=== PATIENT | female | born 1955 | race Caucasian/White ===

== ENCOUNTER 2020-07-25 19:37 | Inpatient (IN) | payer MEDICARE, OTHER ==
[~2020-07-25] VITALS: Ht 157.5 cm; Wt 72.6 kg
--- NOTE | 2020-07-25 19:48 | NUR ---
PT [id number] FROM [facility] FOR AN EPISODE OF APHASIA LASTING 15MINS @ APPROXIMATELY 1900. 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 PT APPEARS TO BE BACK TO HER BASELINE. NO NEUROLIGAL DEFICITS AT THIS TIME. NO DRIFTS ON ALL EXTRIMITIES. -FACIAL ASSYMETRY. PT AAOX4, VSS, RESPIRATIONS EVEN AND UNLABORED ON RA W/ NAD NOTED. PT CONNECTED TO THE MONITOR AND POX.
--- NOTE | 2020-07-25 19:53 | NUR ---
BLOOD COLLECTED AND SENT TO LAB
--- NOTE | 2020-07-25 19:53 | NUR ---
EKG AT BEDSIDE
--- NOTE | 2020-07-25 19:53 | NUR ---
XRAY AT BEDSIDE
[2020-07-25 20:17] LABS: BASOPHILS % (AUTO) 0.4 % (0.0-2.0); EOSINOPHILS % (AUTO) 3.5 % (0.0-6.0); HEMATOCRIT 41 % (33-45); HEMOGLOBIN 12.9 g/dL (11.5-14.8); LYMPHOCYTES # (AUTO) 1.9 /CMM (0.8-4.8); LYMPHOCYTES % (AUTO) 26.8 % (20.0-44.0); MEAN CORPUSCULAR HGB CONC 31 g/dl (31.0-36.0); MEAN CORPUSCULAR VOLUME 83 fL (82-100); MONOCYTES # (AUTO) 0.7 /CMM (0.1-1.30); MONOCYTES % (AUTO) 9.9 % (2.0-12.0); NEUTROPHILS # (AUTO) 4.3 /CMM (1.8-8.9); NEUTROPHILS % (AUTO) 59.4 % (43.0-81.0); PLATELET COUNT (AUTO) 254 /CMM (150-450); RED BLOOD CELL COUNT(AUTO) 4.99 MIL/uL (4.0-5.2); WHITE BLOOD COUNT (AUTO) 7.2 K/uL (4.3-11.0)
[2020-07-25 20:25] LABS: CARBON DIOXIDE 27 mmol/L (21-32); CHLORIDE 108 mmol/L (98-107); GLUCOSE 184 mg/dL (74-106); POTASSIUM 4.1 mmol/L (3.5-5.1); SODIUM SERUM 143 mmol/L (136-145); UREA NITROGEN, BLOOD 26 mg/dL (7-18)
[2020-07-25 20:26] LABS: CALCIUM, SERUM 9.6 mg/dL (8.5-10.1)
[2020-07-25] MEDS ORDERED: IV NS 0.9% 250 ML IV ONE (20:29)
[2020-07-25] MEDS ORDERED: IOHEXOL-350 100 ML VIAL IV ONE (20:29)
--- NOTE | 2020-07-25 20:45 | NUR ---
PT TAKEN TO CT
[2020-07-25] MEDS ORDERED: IV NS 0.9% 1,000 ML IV ONE (21:00)
--- NOTE | 2020-07-25 21:13 | NUR ---
PT BACK FROM RADIOLOGY
--- NOTE | 2020-07-25 21:42 | NUR ---
COVID SWAB SENT TO LAB
[2020-07-25] MEDS ORDERED: LABE100T5 PO (21:43)
[2020-07-25] MEDS ORDERED: HYDR-4354 PO (21:44)
[2020-07-25] MEDS ORDERED: GABA-536 PO (21:45)
--- NOTE | 2020-07-25 21:53 | NUR ---
NURSE NOT AVAILABLE FOR REPORT
[2020-07-25] MEDS ORDERED: ASPIRIN 81 MG TAB.CHEW PO ONE (22:00)
--- NOTE | 2020-07-25 22:11 | NUR ---
CALLED [facility], PAGED JUVENAL PADGETT
--- NOTE | 2020-07-25 22:16 | NUR ---
Rec'd report from SANDY Renteria for ABDIEL
[2020-07-25 22:17] LABS: CHOLESTEROL 148 mg/dL (<200); HDL CHOLESTEROL 46 mg/dL (40-60); LDL 73 mg/dL (0-99); TRIGLYCERIDES 144 mg/dL (30-150)
--- NOTE | 2020-07-25 22:19 | NUR ---
REPORT GIVEN TO SANDY CLEMENT FOR ABDIEL
--- NOTE | 2020-07-25 23:05 | NUR ---
RIPRAP MAN NOTE: Pt transferred to unit via gurney accompanied by RN and EMT. Transferred to bed and hooked up to monitors. Admit dx: TIA, aphasia. A&Ox4. On room air, O2 WNL at 96%. NSR on tele monitor. Pt stated she is able to ambulate w/ cane but refuses to ambulate at this time. IV site on LAC #20 patent and flushed. Dressing c/d/i. Physical assessment and skin check done. Dr. Rae aware of pt's arrival to unit. Currently NPO. Oriented to room and call light. Safety measures in place. Will continue to monitor.
--- NOTE | 2020-07-25 23:08 | NUR ---
PT TRANSFERRED TO 259 IN STABLE CONDITION
[2020-07-25 23:30] VITALS: BP 165/81
[2020-07-25] MEDS ORDERED: ACETAMINOPHEN 325 MG TABLET PO PRN (23:30)
[2020-07-25] MEDS ORDERED: MAG HYDROX/AL HYDROX/SIMETH 30 ML UDC PO PRN (23:30)
[2020-07-26] VITALS (7 sets, daily range): BP systolic 118–169; BP diastolic 64–79
[2020-07-26] MEDS: BLOOD SUGAR DIAGNOSTIC 1 EACH STRIP IN SCH ×6 (00:03→22:37)
--- NOTE | 2020-07-26 00:24 | NUR ---
RN NOTE: Bedside swallow eval done, pt passed. 0013: Updated Dr. Rae who changed NPO status to consistent carb/cardiac diet. Order noted and carried out.
[2020-07-26] MEDS: HYDROCODONE/APAP 10/325MG TABLET PO PRN ×3 (00:37→22:49)
--- NOTE | 2020-07-26 01:30 | NUR ---
RN NOTE: Per pt, she takes Gabapentin 900mg at bedtime and needs her dose to be able to sleep tonight. Paged Dr. Rae, who stated that 900 mg is a high dose for nighttime and does not feel comfortable prescribing. Explained to pt who stated understanding.
--- NOTE | 2020-07-26 01:44 | NUR ---
RN NOTE: Spoke w/ radiology who stated that they can not complete the stat Echo d/t pt pending Covid results. Updated Dr. Rae who said that is fine.
[2020-07-26 04:49] LABS: BASOPHILS % (AUTO) 0.4 % (0.0-2.0); EOSINOPHILS % (AUTO) 2.9 % (0.0-6.0); HEMATOCRIT 39 % (33-45); HEMOGLOBIN 12.3 g/dL (11.5-14.8); LYMPHOCYTES # (AUTO) 2.4 /CMM (0.8-4.8); LYMPHOCYTES % (AUTO) 31.3 % (20.0-44.0); MEAN CORPUSCULAR HGB CONC 32 g/dl (31.0-36.0); MEAN CORPUSCULAR VOLUME 81 fL (82-100); MONOCYTES # (AUTO) 0.8 /CMM (0.1-1.30); MONOCYTES % (AUTO) 10.3 % (2.0-12.0); NEUTROPHILS # (AUTO) 4.3 /CMM (1.8-8.9); NEUTROPHILS % (AUTO) 55.1 % (43.0-81.0); PLATELET COUNT (AUTO) 231 /CMM (150-450); RED BLOOD CELL COUNT(AUTO) 4.77 MIL/uL (4.0-5.2); WHITE BLOOD COUNT (AUTO) 7.8 K/uL (4.3-11.0)
[2020-07-26 05:00] LABS: ALBUMIN 2.8 g/dL (3.4-5.0); BILIRUBIN,TOTAL 0.3 mg/dL (0.2-1.0); CALCIUM, SERUM 8.9 mg/dL (8.5-10.1); CREATININE 1.6 mg/dL (0.6-1.3); PHOSPHORUS 2.6 mg/dL (2.5-4.9); POTASSIUM 4.1 mmol/L (3.5-5.1); TOTAL PROTEIN, SERUM 6.8 g/dL (6.4-8.2)
[2020-07-26 05:34] LABS: THYROID STIMULATING HORMONE 0.618 uIU/mL (0.358-3.74)
--- NOTE | 2020-07-26 06:55 | NUR ---
RN CLOSING NOTES: Pt remains stable throughout shift. No acute changes noted throughout shift. Remains on isolation for positive Covid. Remains on 4LPM NC tolerating well. No SOB or resp distress noted throughout shift. RFA #20 patent and flushed. Dressing c/d/i. All meds given as ordered. Kept clean/dry. Safety measures in place. Will endorse to am nurse for ABDIEL. Addendum: 07/26/20 at 0655 by URBANO HANNA RN WRONG PATIENT!
--- NOTE | 2020-07-26 06:56 | NUR ---
RN CLOSING NOTES: Pt remains stable throughout shift. No acute changes noted throughout shift. Remains on isolation precautions for R/O Covid. Remains on room air, O2 sat WNL. No SOB or resp distress noted throughout shift. NSR on tele monitor. LAC #20 patent and flushed. Dressing c/d/i. All meds given as ordered. Kept clean/dry. Safety measures in place. Will endorse to am nurse for ABDIEL.
--- NOTE | 2020-07-26 07:30 | NUR ---
RN NOTES RECEIVED PATIENT AWAKE, ALERT AND ORIENTED X4, ABLE TO MAKE NEEDS KNOWN.ABLE TO FOLLOW COMMANDS NOT ON ANY FORM OF DISTRESS. ON ROOM AIR, BREATHING UNLABORED.SATING FINE. NO COMPLAINTS OF PAIN OF ANY KIND. UPPER EXTREMITIES STRENGTH 5/5, NO DRIFT. LOWER EXTREMITIES STRENGTH 5/5. PATIENT ENCOURAGE TO CALL FOR HELP/ASSISTANCE. VERBALIZE FEELINGS AND CONCERNS.SAFETY MEASURERS OBSERVED AND MAINTAINED. CALL LIGHT PLACED WITHIN REACH. WILL CONTINUE TO MONITOR PATIENT AND IMPLEMENT ISOLATION PENDING PCR RESULTS
[2020-07-26] MEDS ORDERED: ASPIRIN EC 325 MG TABLET.DR PO SCH (09:00)
[2020-07-26] MEDS: GABAPENTIN 400 MG CAPSULE PO SCH ×3 (09:04→17:04)
[2020-07-26] MEDS: DOCUSATE SODIUM 100 MG CAPSULE PO SCH (09:04)
[2020-07-26] MEDS: LABETALOL HCL (100MG) 100 MG TABLET PO SCH ×2 (09:04→17:04)
[2020-07-26] MEDS: PANTOPRAZOLE 40 MG VIAL IV SCH (09:04)
[2020-07-26] MEDS: ENOXAPARIN SODIUM 30 MG/0.3 ML DISP.SYRIN SQ SCH (09:05)
--- NOTE | 2020-07-26 12:00 | NUR ---
rn notes insulin per slidinng scale not given as patient refused to eat lunch
--- NOTE | 2020-07-26 16:21 | NUR ---
3:00pm Social Service consult requested by Dayna Rae MAINS AND SERVICE SUPERVISOR per stroke protocol. Per RN patient has not been able to sleep and is currently asleep now.
[2020-07-26] MEDS: CLOPIDOGREL BISULFATE 75 MG TABLET PO SCH (17:04)
--- NOTE | 2020-07-26 19:21 | NUR ---
RN NOTES ENDORSED PATIENT FOR ABDIEL. NO ACUTE CHANGES WITHIN THE SHIFT.
--- NOTE | 2020-07-26 20:45 | NUR ---
RN NOTES ENDORSEMENT REPORT GIVEN TO MISHA IN [facility] FOR PT TRANSFER FROM ICU TO [facility] ROOM 105. FOR ABDIEL. JUAN MIGUEL DELGADO MADE AWARE. Addendum: 07/26/20 at 2137 by DORCAS ROSEN RN [id number] FACILITATED PATIENT TRANSFER TO [facility]; TRANSFERRED PT ON STABLE CONDITION WITH ALL VITALS WNL TO RECEIVING SAIMA. JUAN MIGUEL DELGADO OF [facility] MADE AWARE.
--- NOTE | 2020-07-26 21:30 | NUR ---
SOLID DIE CUTTER NOTE RECEIVED PT A/O X4. BREATHING EVEN AND UNLABORED IN RA. NO SOB OR ACUTE DISTRESS NOTED. DENIES ANY PAIN PAIN OR DISCOMFORT. SINUS RHYTHM ON MONITOR. LAC #20G IV LINE PATENT AND INTACT. ALL NEEDS RENDERED. CALL LIGHT WITHIN REACH. KEPT CLEAN AND DRY. WILL CONTINUE TO MONITOR
[2020-07-26] MEDS ORDERED: SIMVASTATIN 10 MG TABLET PO SCH (22:00)
--- NOTE | 2020-07-26 22:52 | NUR ---
TELE-1/GROUNDS FOREMAN PER JUVENAL PADGETT HEALTH SERVICES COORDINATOR CONTINUE ACCU CHECKS TO MONITOR BLOOD SUGAR. BUT DISCONTINUE THE COMMENT TO NOTIFY MD IS BLOOD SUGAR GREATER THAN 150. WILL CONTINUE TO MONITOR.
[2020-07-27] VITALS: BP 126/67
[2020-07-27 04:00] VITALS: BP 140/54
[2020-07-27 06:34] LABS: BASOPHILS % (AUTO) 0.3 % (0.0-2.0); EOSINOPHILS % (AUTO) 3.2 % (0.0-6.0); HEMATOCRIT 39 % (33-45); HEMOGLOBIN 12.7 g/dL (11.5-14.8); LYMPHOCYTES # (AUTO) 2.2 /CMM (0.8-4.8); LYMPHOCYTES % (AUTO) 26.3 % (20.0-44.0); MEAN CORPUSCULAR HGB CONC 33 g/dl (31.0-36.0); MEAN CORPUSCULAR VOLUME 81 fL (82-100); MONOCYTES # (AUTO) 0.9 /CMM (0.1-1.30); MONOCYTES % (AUTO) 10.8 % (2.0-12.0); NEUTROPHILS # (AUTO) 4.9 /CMM (1.8-8.9); NEUTROPHILS % (AUTO) 59.4 % (43.0-81.0); PLATELET COUNT (AUTO) 244 /CMM (150-450); RED BLOOD CELL COUNT(AUTO) 4.83 MIL/uL (4.0-5.2); WHITE BLOOD COUNT (AUTO) 8.3 K/uL (4.3-11.0)
--- NOTE | 2020-07-27 06:48 | NUR ---
VP INFORMATION TECHNOLOGY NOTE PT IN BED. ASLEEP . BREATHING EVEN AND UNLABORED. NO SOB OR ACUTE DISTRESS NOTED. NO S/S OF PAIN OR DISCOMFORT. BED IN LOWEST POSITION. CALL LIGHT WITHIN REACH. ALL NEEDS RENDERED. WILL ENDORSE TO NEXT SHIFT FOR CONTINUITY OF CARE.
[2020-07-27 07:09] LABS: CALCIUM, SERUM 9.7 mg/dL (8.5-10.1); CREATININE 1.6 mg/dL (0.6-1.3); MAGNESIUM 1.9 mg/dL (1.8-2.4); POTASSIUM 4.1 mmol/L (3.5-5.1)
[2020-07-27] MEDS: BLOOD SUGAR DIAGNOSTIC 1 EACH STRIP IN SCH ×2 (07:34→11:32)
--- NOTE | 2020-07-27 07:34 | NUR ---
rn notes patient BS of 156, refused insulin coverage x3.
[2020-07-27 08:00] VITALS: BP 137/62
[2020-07-27] MEDS: CLOPIDOGREL BISULFATE 75 MG TABLET PO SCH (08:13)
[2020-07-27] MEDS: GABAPENTIN 400 MG CAPSULE PO SCH ×2 (08:13→12:12)
[2020-07-27] MEDS: DOCUSATE SODIUM 100 MG CAPSULE PO SCH (08:13)
[2020-07-27] MEDS: LABETALOL HCL (100MG) 100 MG TABLET PO SCH (08:13)
[2020-07-27] MEDS: ENOXAPARIN SODIUM 30 MG/0.3 ML DISP.SYRIN SQ SCH (08:14)
[2020-07-27] MEDS: PANTOPRAZOLE 40 MG VIAL IV SCH (08:18)
[2020-07-27] MEDS: HYDROCODONE/APAP 10/325MG TABLET PO PRN (08:25)
[2020-07-27] MEDS ORDERED: ASPIRIN 81 MG TAB.CHEW PO SCH (09:00)
[2020-07-27 12:00] VITALS: BP 128/64
[2020-07-27] MEDS ORDERED: SIMV10TA98 PO (14:12)
[2020-07-27] MEDS ORDERED: ASPI-1169 PO (14:12)
[2020-07-27] MEDS ORDERED: CLOP75TA15 PO (14:12)
--- NOTE | 2020-07-27 15:39 | NUR ---
rn notes patient dc at this time, took the taxi and she has all her belongings, no further questions about her discharge. Called in report to her facility. No further questions as well. IV line removed, minimal bleeding noted.
--- NOTE | 2020-07-27 16:09 | NUR ---
rn notes patient refuses photo prior to discharge. States that she was not comfortable. refused x3
[2020-07-28] MEDS ORDERED: PANTOPRAZOLE 40 MG TABLET.DR PO SCH (07:30)
== END 2020-07-27 16:09 | DRG 69 ==
LOC: ER 19:43 → ICU 22:50 → TELE1 07-26 21:07 → MEDSG1 07-27 10:33
PROVIDERS: ADMIT Registered Nurse
DX: G45.9 Transient cerebral ischemic attack, unspecified (principal); N17.9 Acute kidney failure, unspecified; R47.01 Aphasia; E86.0 Dehydration; I10 Essential (primary) hypertension; E66.9 Obesity, unspecified; E11.40 Type 2 diabetes mellitus with diabetic neuropathy, unspecified; G89.4 Chronic pain syndrome; N18.3 Chronic kidney disease, stage 3 (moderate); I12.9 Hypertensive chronic kidney disease with stage 1 through stage 4 chronic kidney disease, or unspecified chronic kidney disease; E11.22 Type 2 diabetes mellitus with diabetic chronic kidney disease; L21.9 Seborrheic dermatitis, unspecified; Z87.440 Personal history of urinary (tract) infections; M40.209 Unspecified kyphosis, site unspecified; Z87.891 Personal history of nicotine dependence; Z68.29 Body mass index [BMI] 29.0-29.9, adult; Z71.3 Dietary counseling and surveillance; R29.700 NIHSS score 0; R40.2362 Coma scale, best motor response, obeys commands, at arrival to emergency department; R40.2142 Coma scale, eyes open, spontaneous, at arrival to emergency department; R40.2252 Coma scale, best verbal response, oriented, at arrival to emergency department; Z82.3 Family history of stroke
CPT/HCPCS: 36415; 70450-TC; 71045-TC; 80048-TC; 80053-TC; 80061-TC; 82962-TC; 83735-TC; 84100-TC; 84443-TC; 84484-TC; 85025-TC; 85730-TC; 87081-TC; 92611-TC; 93307-TC; 93880-TC; 97116-TC; 97530-TC; C9113; G0378; J1650; J7030; J7050; Q9967; U0003-CS